=== PATIENT | male | born 1955 | race Caucasian/White ===

== ENCOUNTER 2017-01-08 17:01 | Inpatient (IN) | payer OTHER ==
[~2017-01-08] VITALS: Ht 167.6 cm; Wt 56.6 kg
[~2017-01-08 17:01] MED LIST: ALBU1AER INH; BACT800T5 PO; CELE20TA PO; HYDR-3533 PO
[2017-01-08 17:03] VITALS: BP 120/98; PULSE 98; RESP 24; TEMP 97.8; O2SAT 94
[2017-01-08] MEDS ORDERED: ALBUAER3 INH (17:51)
[2017-01-08 18:18] VITALS: RESP 24; O2SAT 96
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
[2017-01-08 18:37] LABS: AUTOMATED NEUTROPHIL # 7.5 TH/MM3 (1.8-7.7); BASOPHIL % 0.4 % (0.0-2.0); EOSINOPHIL % 0.5 % (0.0-4.0); HEMO FLAGS DIFF FINAL; LYMPH % 8.7 % (9.0-44.0); LYMPHOCYTE # 0.8 TH/MM3 (1.0-4.8); MEAN CELL VOLUME 91.4 FL (80.0-100.0); MEAN CORPUSCULAR HEMOGLOBIN 30.4 PG (27.0-34.0); MEAN CORPUSCULAR HGB CONC 33.3 % (32.0-36.0); MONO % 10.6 % (0.0-8.0); NEUT % 79.8 % (16.0-70.0); PLATELET COUNT 190 TH/MM3 (150-450); RED BLOOD COUNT 5.03 MIL/MM3 (4.50-5.90); WHITE BLOOD COUNT 9.4 TH/MM3 (4.0-11.0)
[2017-01-08] MEDS: RESP: ALBUTEROL 2.5 MG/IPRATROPIUM 0.5 MG NEB (SCH) INH ×2 (18:40→18:43)
[2017-01-08] MEDS ORDERED: KETAMINE HCL 500 MG/10 ML VIAL ONE (18:44)
[2017-01-08 18:50] VITALS: O2SAT 99
[2017-01-08 18:51] LABS: ANION GAP 10 MEQ/L (5-15); AST (GOT) 21 U/L (15-37); BICARBONATE 29.5 MEQ/L (21.0-32.0); BLOOD UREA NITROGEN 11 MG/DL (7-18); CHLORIDE 102 MEQ/L (98-107); GLOMERULAR FILTRATION RATE 82 ML/MIN (>89); POTASSIUM 4.1 MEQ/L (3.5-5.1); SODIUM (NA) 141 MEQ/L (136-145)
[2017-01-08] MEDS ORDERED: LIDOCAINE 1%/EPINEPHrine 1:100,000 SOLN 20 ML VIAL ONE (18:53)
[2017-01-08 18:54] LABS: ALKALINE PHOSPHATASE 76 U/L (45-117); ALT (GPT) 30 U/L (12-78); TOTAL BILIRUBIN ADULT 0.8 MG/DL (0.2-1.0)
[2017-01-08] MEDS: SODIUM CHLORIDE 0.9% FLUSH 10 ML FLUSH IV FLUSH PRN (18:57)
[2017-01-08 19:07] VITALS: BP 124/86; PULSE 96; RESP 24; O2SAT 98
--- NOTE | 2017-01-08 19:09 | RADRPT ---
EXAM DATE/TIME: 01/08/2017 18:35 [facility] COMPARISON: CHEST SINGLE AP, March 28, 2015, 20:17. INDICATIONS : Left side chest pain post fall three days ago. MEDICAL HISTORY : Chronic obstructive pulmonary disease. SURGICAL HISTORY : None. ENCOUNTER: Initial ACUITY: 3 days PAIN SCORE: 9/10 LOCATION: Left chest FINDINGS: The cardiac silhouette is enlarged in transverse diameter. A large left pneumothorax is present witho ut significant midline shift. Fractures of left sixth and seventh ribs are present. The right lung is free of acute parenchymal opacity. Minimal subcutaneous emphysema is present. CONCLUSION: 1. Large left pneumothorax. Ashley was notified of these findings at the time of dictation Chico Nunez MD on January 08, 2017 at 19:05 Board Certified Radiologist. This report was verified electronically.
[2017-01-08 19:37] VITALS: BP 160/95; PULSE 81; RESP 22; O2SAT 100
[2017-01-08] MEDS ORDERED: MORPHINE SULFATE 4 MG/ML INJ IV PUSH ONE (19:45)
[2017-01-08] MEDS ORDERED: IOHEXOL 350 MG/ML 10 ML VIAL (for RAD DIAG) IV ONE (20:05)
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
--- NOTE | 2017-01-08 20:38 | RADRPT ---
EXAM DATE/TIME: 01/08/2017 19:34 [facility] COMPARISON: CHEST SINGLE AP, January 08, 2017, 18:35. INDICATIONS : Chest tube placement. MEDICAL HISTORY : Chronic obstructive pulmonary disease. SURGICAL HISTORY : None. ENCOUNTER: Subsequent ACUITY: 1 day PAIN SCORE: 4/10 LOCATION: Left chest FINDINGS: A left chest tube is in place with resolution of the previously seen pneumothorax. The lungs are free of acute parenchymal opacity. No effusions are identified. No pleural effusions are identified. The cardiac silhouette is enlarged in transverse diameter. CONCLUSION: 1. Left chest tube placement. There is no evidence of pneumothorax. Chico Nunez MD on January 08, 2017 at 20:36 Board Certified Radiologist. This report was verified electronically.
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
[2017-01-09] VITALS (9 sets, daily range): BP systolic 104–150; BP diastolic 68–90; PULSE 51–76; RESP 18–20; TEMP 95.6–97.3; O2SAT 95–100
[2017-01-09] MEDS ORDERED: MORPHINE SULFATE 4 MG/ML INJ IV PRN
[2017-01-09] MEDS ORDERED: ENALAPRILAT 1.25 MG/ML VIAL IV PRN
[2017-01-09] MEDS ORDERED: SODIUM CHLORIDE 0.9% FLUSH 10 ML FLUSH IV FLUSH PRN
[2017-01-09] MEDS ORDERED: ACETAMINOPHEN/HYDROcodone 325 MG/5 MG TAB PO PRN
[2017-01-09] MEDS ORDERED: ONDANSETRON HCL 4 MG/2 ML VIAL IV PRN
[2017-01-09] MEDS: PANTOPRAZOLE SODIUM 40 MG VIAL IVP SCH ×2 (01:22→23:27)
[2017-01-09] MEDS: ACETAMINOPHEN/HYDROcodone 325 MG/5 MG TAB PO PRN ×5 (01:23→20:30)
[2017-01-09] MEDS: SODIUM CHLOR 0.9% 1000 ML INJ 1,000 ML IV SCH ×3 (02:04→19:51)
[2017-01-09] MEDS: MULTIVITAMIN INJ 10 ML, THIAMINE INJ 100 MG, FOLIC ACID INJ 1 MG in SODIUM CHLORID 0.9%... IV SCH (02:05)
--- NOTE | 2017-01-09 07:19 | RADRPT ---
EXAM DATE/TIME: 01/09/2017 06:37 [facility] COMPARISON: CHEST SINGLE AP, January 08, 2017, 19:34. INDICATIONS : Short of breath, evaluate left pneumothorax and chest tube MEDICAL HISTORY : left pneumothorax SURGICAL HISTORY : chest tube ENCOUNTER: Subsequent ACUITY: 2 days PAIN SCORE: 7/10 LOCATION: Left chest FINDINGS: Slight left lung base air space process is present may represent pneumonia or contusion. Chest tube i s present on the left side. No definite pneumothorax is seen for technique. Heart and mediastinum are unremarkable for technique. CONCLUSION: Left lung base air space process and no pneumothorax. Steven Peterson MD on January 09, 2017 at 7:17 Board Certified Radiologist. This report was verified electronically.
[2017-01-09] MEDS ORDERED: REMOVE OLD LIDOCAINE PATCH T-DERMAL SCH (07:30)
[2017-01-09] MEDS: METHOCARBAMOL 500 MG TAB PO SCH ×3 (07:39→22:07)
[2017-01-09] MEDS: LIDOCAINE HCL 5% PATCH T-DERMAL SCH (07:39)
[2017-01-09 07:43] LABS: AUTOMATED NEUTROPHIL # 3.6 TH/MM3 (1.8-7.7); BASOPHIL % 0.4 % (0.0-2.0); EOSINOPHIL # 0.3 TH/MM3 (0-0.4); EOSINOPHIL % 4.1 % (0.0-4.0); HEMATOCRIT 40.1 % (39.0-51.0); HEMO FLAGS DIFF FINAL; LYMPH % 26.4 % (9.0-44.0); LYMPHOCYTE # 1.7 TH/MM3 (1.0-4.8); MEAN CORPUSCULAR HEMOGLOBIN 30.1 PG (27.0-34.0); MEAN CORPUSCULAR HGB CONC 32.7 % (32.0-36.0); NEUT % 57.1 % (16.0-70.0); PLATELET COUNT 147 TH/MM3 (150-450); RED BLOOD COUNT 4.36 MIL/MM3 (4.50-5.90); WHITE BLOOD COUNT 6.3 TH/MM3 (4.0-11.0)
[2017-01-09 08:08] LABS: ALKALINE PHOSPHATASE 60 U/L (45-117); ALT (GPT) 24 U/L (12-78); ANION GAP 7 MEQ/L (5-15); AST (GOT) 17 U/L (15-37); BICARBONATE 29.2 MEQ/L (21.0-32.0); BLOOD UREA NITROGEN 10 MG/DL (7-18); CHLORIDE 105 MEQ/L (98-107); GLOMERULAR FILTRATION RATE 123 ML/MIN (>89); POTASSIUM 3.7 MEQ/L (3.5-5.1); SODIUM (NA) 141 MEQ/L (136-145); TOTAL BILIRUBIN ADULT 0.9 MG/DL (0.2-1.0)
[2017-01-09] MEDS ORDERED: ALBUTEROL SULFATE 90 MCG/ACT HFA 18 GM INHALER INH PRN (08:30)
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
[2017-01-09] MEDS: CITALOPRAM HYDROBROMIDE 20 MG TAB PO SCH (13:36)
[2017-01-09] MEDS: TAMSULOSIN HCL 0.4 MG CAP PO SCH (13:36)
[2017-01-09] MEDS ORDERED: RESP: ALBUTEROL 2.5 MG/IPRATROPIUM 0.5 MG NEB (PRN) NEB (16:45)
[2017-01-09] MEDS ORDERED: BISACODYL 10 MG SUPP RECTAL PRN (16:45)
[2017-01-09] MEDS ORDERED: POLYETHYLENE GLYCOL 17 GM PKG PO PRN (16:45)
[2017-01-09] MEDS: BISACODYL EC 5 MG TABEC PO PRN (18:12)
[2017-01-09] MEDS: RESP: ALBUTEROL 2.5 MG/IPRATROPIUM 0.5 MG NEB (SCH) NEB (19:21)
[2017-01-09] MEDS: MAGNESIUM HYDROXIDE SUSP 30 ML CUP PO SCH (20:29)
[2017-01-09] MEDS: DOCUSATE SODIUM 100 MG CAP PO SCH (20:29)
[2017-01-09] MEDS: REMOVE OLD LIDOCAINE PATCH T-DERMAL SCH (20:35)
[2017-01-10] VITALS (8 sets, daily range): BP systolic 95–119; BP diastolic 62–70; PULSE 75–89; RESP 18–20; TEMP 97.4–98.8; O2SAT 96–100
[2017-01-10] MEDS: MULTIVITAMIN INJ 10 ML, THIAMINE INJ 100 MG, FOLIC ACID INJ 1 MG in SODIUM CHLORID 0.9%... IV SCH (01:57)
[2017-01-10] MEDS: ACETAMINOPHEN/HYDROcodone 325 MG/5 MG TAB PO PRN ×6 (01:58→21:35)
[2017-01-10 05:23] LABS: AUTOMATED NEUTROPHIL # 7.6 TH/MM3 (1.8-7.7); BASOPHIL # 0.1 TH/MM3 (0-0.2); BASOPHIL % 0.9 % (0.0-2.0); EOSINOPHIL # 0.2 TH/MM3 (0-0.4); HEMATOCRIT 39.6 % (39.0-51.0); HEMO FLAGS DIFF FINAL; LYMPH % 11.5 % (9.0-44.0); LYMPHOCYTE # 1.1 TH/MM3 (1.0-4.8); MEAN CORPUSCULAR HEMOGLOBIN 31.4 PG (27.0-34.0); MEAN CORPUSCULAR HGB CONC 34.1 % (32.0-36.0); MONO % 8.3 % (0.0-8.0); NEUT % 77.3 % (16.0-70.0); PLATELET COUNT 174 TH/MM3 (150-450); RED CELL DISTRIBUTION WIDTH 13.9 % (11.6-17.2); WHITE BLOOD COUNT 9.9 TH/MM3 (4.0-11.0)
[2017-01-10] MEDS: METHOCARBAMOL 500 MG TAB PO SCH ×3 (05:47→21:34)
[2017-01-10] MEDS: SODIUM CHLOR 0.9% 1000 ML INJ 1,000 ML IV SCH ×2 (05:51→07:28)
[2017-01-10 05:53] LABS: ALKALINE PHOSPHATASE 71 U/L (45-117); ALT (GPT) 24 U/L (12-78); ANION GAP 8 MEQ/L (5-15); AST (GOT) 17 U/L (15-37); BICARBONATE 26.3 MEQ/L (21.0-32.0); BLOOD UREA NITROGEN 10 MG/DL (7-18); CHLORIDE 107 MEQ/L (98-107); GLOMERULAR FILTRATION RATE 119 ML/MIN (>89); POTASSIUM 3.8 MEQ/L (3.5-5.1); SODIUM (NA) 141 MEQ/L (136-145); TOTAL BILIRUBIN ADULT 0.5 MG/DL (0.2-1.0)
--- NOTE | 2017-01-10 07:04 | RADRPT ---
EXAM DATE/TIME: 01/10/2017 06:16 [facility] COMPARISON: CHEST SINGLE AP, January 09, 2017, 6:37. INDICATIONS : Short of breath, coughing. Chest tube on water seal since 5am today MEDICAL HISTORY : pneumothorax SURGICAL HISTORY : left chest tube ENCOUNTER: Subsequent ACUITY: 3 days PAIN SCORE: 5/10 LOCATION: Bilateral chest FINDINGS: Chest tube is present on the left side. Bibasilar mainly air space process is present worse since the prior exam. No definite pneumothorax is seen for technique. The rest of the examination has not sign ificantly changed. CONCLUSION: Worsening bibasilar air space process. Steven Peterson MD on January 10, 2017 at 7:01 Board Certified Radiologist. This report was verified electronically.
[2017-01-10] MEDS: BISACODYL EC 5 MG TABEC PO PRN (07:28)
[2017-01-10] MEDS: DOCUSATE SODIUM 100 MG CAP PO SCH ×2 (07:28→21:34)
[2017-01-10] MEDS: CITALOPRAM HYDROBROMIDE 20 MG TAB PO SCH (07:28)
[2017-01-10] MEDS: LIDOCAINE HCL 5% PATCH T-DERMAL SCH (07:29)
[2017-01-10] MEDS: TAMSULOSIN HCL 0.4 MG CAP PO SCH (07:29)
[2017-01-10] MEDS: SODIUM CHLORIDE 0.9% FLUSH 10 ML FLUSH IV FLUSH PRN (07:31)
[2017-01-10] MEDS: RESP: ALBUTEROL 2.5 MG/IPRATROPIUM 0.5 MG NEB (SCH) NEB ×3 (09:56→20:44)
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
[2017-01-10] MEDS ORDERED: DOCU1CAP39 PO (11:45)
[2017-01-10] MEDS ORDERED: MILKSUS PO (11:45)
[2017-01-10] MEDS: KETOROLAC TROMETHAMINE 30 MG/ML (IVP) VIAL IV PUSH SCH ×3 (11:53→23:49)
[2017-01-10] MEDS: ENOXAPARIN SODIUM 40 MG/0.4 ML SYRINGE SQ SCH (11:53)
[2017-01-10] MEDS: LACTULOSE SYRUP 20 GM/30 ML CUP PO SCH (11:53)
[2017-01-10] MEDS: REMOVE OLD LIDOCAINE PATCH T-DERMAL SCH (21:00)
[2017-01-10] MEDS: MAGNESIUM HYDROXIDE SUSP 30 ML CUP PO SCH (21:00)
[2017-01-10] MEDS: PANTOPRAZOLE SODIUM 40 MG VIAL IVP SCH (23:49)
[2017-01-11] VITALS: BP 111/71; PULSE 68; RESP 18; TEMP 96.2; O2SAT 97
[2017-01-11] MEDS: MULTIVITAMIN INJ 10 ML, THIAMINE INJ 100 MG, FOLIC ACID INJ 1 MG in SODIUM CHLORID 0.9%... IV SCH (02:04)
[2017-01-11] MEDS: ACETAMINOPHEN/HYDROcodone 325 MG/5 MG TAB PO PRN ×4 (02:05→17:38)
[2017-01-11 04:00] VITALS: BP 136/80; PULSE 69; RESP 20; TEMP 96.2; O2SAT 96
[2017-01-11 05:20] LABS: AUTOMATED NEUTROPHIL # 4.8 TH/MM3 (1.8-7.7); BASOPHIL % 0.5 % (0.0-2.0); EOSINOPHIL # 0.3 TH/MM3 (0-0.4); EOSINOPHIL % 4.6 % (0.0-4.0); HEMATOCRIT 35.2 % (39.0-51.0); HEMO FLAGS DIFF FINAL; LYMPHOCYTE # 0.8 TH/MM3 (1.0-4.8); MEAN CELL VOLUME 91.6 FL (80.0-100.0); MEAN CORPUSCULAR HEMOGLOBIN 30.7 PG (27.0-34.0); MEAN CORPUSCULAR HGB CONC 33.5 % (32.0-36.0); MONO % 11.4 % (0.0-8.0); NEUT % 71.5 % (16.0-70.0); PLATELET COUNT 139 TH/MM3 (150-450); RED BLOOD COUNT 3.84 MIL/MM3 (4.50-5.90); RED CELL DISTRIBUTION WIDTH 13.7 % (11.6-17.2); WHITE BLOOD COUNT 6.7 TH/MM3 (4.0-11.0)
[2017-01-11 05:40] LABS: ALKALINE PHOSPHATASE 65 U/L (45-117); ALT (GPT) 35 U/L (12-78); ANION GAP 10 MEQ/L (5-15); AST (GOT) 28 U/L (15-37); BLOOD UREA NITROGEN 10 MG/DL (7-18); CHLORIDE 104 MEQ/L (98-107); GLOMERULAR FILTRATION RATE 165 ML/MIN (>89); POTASSIUM 3.5 MEQ/L (3.5-5.1); SODIUM (NA) 139 MEQ/L (136-145); TOTAL BILIRUBIN ADULT 0.5 MG/DL (0.2-1.0)
[2017-01-11] MEDS: KETOROLAC TROMETHAMINE 30 MG/ML (IVP) VIAL IV PUSH SCH ×3 (05:40→18:00)
[2017-01-11] MEDS: METHOCARBAMOL 500 MG TAB PO SCH ×2 (05:40→14:40)
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
[2017-01-11 08:00] VITALS: BP 139/75; PULSE 84; RESP 18; TEMP 96.2; O2SAT 95
[2017-01-11] MEDS: LIDOCAINE HCL 5% PATCH T-DERMAL SCH (08:43)
[2017-01-11] MEDS: CITALOPRAM HYDROBROMIDE 20 MG TAB PO SCH (08:43)
[2017-01-11] MEDS: LACTULOSE SYRUP 20 GM/30 ML CUP PO SCH (08:43)
[2017-01-11] MEDS: TAMSULOSIN HCL 0.4 MG CAP PO SCH (08:43)
[2017-01-11] MEDS: DOCUSATE SODIUM 100 MG CAP PO SCH (08:43)
[2017-01-11] MEDS: RESP: ALBUTEROL 2.5 MG/IPRATROPIUM 0.5 MG NEB (SCH) NEB ×2 (09:53→13:13)
[2017-01-11 09:54] VITALS: O2SAT 97
[2017-01-11] MEDS ORDERED: HYDR-3516 PO (10:56)
[2017-01-11 12:00] VITALS: BP 116/71; PULSE 74; RESP 18; TEMP 96.7; O2SAT 97
--- NOTE | 2017-01-11 12:34 | RADRPT ---
EXAM DATE/TIME: 01/11/2017 11:30 [facility] COMPARISON: CHEST SINGLE AP, January 11, 2017, 5:55. INDICATIONS : Post left chest tube removal MEDICAL HISTORY : None. SURGICAL HISTORY : None. ENCOUNTER: Initial ACUITY: 1 day PAIN SCORE: 0/10 LOCATION: Left chest FINDINGS: Single expiratory AP view of the chest. Left-sided chest tube no longer seen. No evidence of pneumoth orax. CONCLUSION: Left-sided chest tube no longer seen. No evidence of pneumothorax. Andrew Banuelos MD on January 11, 2017 at 12:32 Board Certified Radiologist. This report was verified electronically.
[2017-01-11] MEDS: ENOXAPARIN SODIUM 40 MG/0.4 ML SYRINGE SQ SCH (12:48)
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
== END 2017-01-11 19:07 | disposition home or self-care (01) | DRG 200 ==
LOC: NEPC 17:01 → NEDA 21:20 → N06B 01-09 02:10
PROVIDERS: ADMIT Surgery; ATTEND Surgery
PROC: 0W9B30Z Drainage of Left Pleural Cavity with Drainage Device, Percutaneous Approach (ICD-10-PCS; principal; 2017-01-08)
DX: S27.0XXA Traumatic pneumothorax, initial encounter (principal); S22.42XA Multiple fractures of ribs, left side, initial encounter for closed fracture; J44.9 Chronic obstructive pulmonary disease, unspecified; F17.200 Nicotine dependence, unspecified, uncomplicated; W19.XXXA Unspecified fall, initial encounter; Y92.9 Unspecified place or not applicable
CPT/HCPCS: 32551; 71010; 71260; 74177; 80053; 83690; 83735; 85025; 94150; 94640; 94664; 94667; 94668; 96374; 96375; 99152; C9113; J1650; J1885; J2270; J2405; J3411; J7030; J7040; Q9967

== ENCOUNTER 2018-01-14 12:50 | Day surgery (SDC) | payer OTHER ==
[~2018-01-14 12:50] MED LIST changes: -ALBU1AER INH; +ALBUAER3 INH; -BACT800T5 PO; -CELE20TA PO; +DOCU1CAP39 PO; +HYDR-3516 PO; -HYDR-3533 PO; +MILKSUS PO
[2018-01-14 13:30] VITALS: BP 119/73; PULSE 74; RESP 16; TEMP 97.7; O2SAT 96
--- NOTE | 2018-01-14 13:54 | PD.RAD ---
Post US Procedure Prog Note Pre Procedure Diagnosis: (1) Thyroid mass Post Procedure Diagnosis: (1) Thyroid mass Procedure Date: January 14, 2018 Supervising Radiologist: Messi Fuentes Plan of Activity See PACS Report for procedural detail/treatment Biopsy Imaging Guidance: Ultrasound Side: Right Biopsy Procedure: Thyroid Specimen: Fine Needle Aspirate Messi Fuentes MD January 14, 2018 13:54
[2018-01-14 14:16] VITALS: BP 129/87; PULSE 67; RESP 18; TEMP 97.8; O2SAT 97
--- NOTE | 2018-01-14 14:26 | RADRPT ---
EXAM DATE: 01/14/2018 2:14 PM EDT AGE/SEX: 62 years / Male INDICATIONS: Right thyroid nodule. CLINICAL DATA: This is the patient's initial encounter. Patient reports that signs and symptoms have been present for 1 month and indicates a pain score of 0/10. MEDICAL/SURGICAL HISTORY: Chronic obstructive pulmonary disease. Depression. Right thyroid nodu le. Anxiety. . Back surgery. COMPARISON: No prior [place] exams available for comparison. ORGAN: Right thyroid. SPECIMEN(S): DEVICE(S): 25 gauge needle 25 gauge needle 25 gauge needle Post procedure scanning reveals no hematoma or other complication. The possibility does exist that the tissue obtained will be non-diagnostic. If the sample is non-diag nostic, a repeat biopsy or surgical biopsy may need to be performed. TECHNIQUE: 1. Ultrasound guidance for needle biopsy. 2. Needle biopsy. 3. 4. . . The risks, benefits and alternatives to the procedure were explained and verbal and written consent w as obtained. The site was prepped in sterile fashion. Full sterile technique was used, including ca p, mask, sterile gloves and gown and a large sterile sheet. Hand hygiene and 2% chlorhexidine and/or betadine/alcohol prep was utilized per protocol for cutaneous antisepsis. The skin and subcutaneous tissues were infiltrated with local anesthetic solution. Sterile gel and sterile probe cover were u tilized for ultrasound guidance. With the patient on the ultrasound table, images were obtained. A needle was advanced into the identified target and the number of specimens as above obtained and gonzalez bmitted for pathologic evaluation. The patient tolerated the procedure well and left the ultrasound suite in stable condition. CONCLUSION: Uncomplicated fine needle biopsy of the right thyroid lobe. Electronically signed by: Messi Fuentes MD 01/14/2018 2:25 PM EDT
[2018-01-14] MEDS ORDERED: LIDOCAINE HCL 1% 20 ML VIAL ONE (14:27)
[2018-01-14 14:31] VITALS: BP 147/90; PULSE 69; RESP 20; O2SAT 98
== END 2018-01-14 14:43 | disposition home or self-care (01) ==
LOC: HRAD 12:50 → HRIP 12:53 → HRAD 14:43
PROVIDERS: ATTEND Family Medicine
DX: E04.1 Nontoxic single thyroid nodule (principal); J44.9 Chronic obstructive pulmonary disease, unspecified; F32.9 Major depressive disorder, single episode, unspecified; F41.9 Anxiety disorder, unspecified
CPT/HCPCS: 10022; 76942; 88172; 88173